=== PATIENT | female | born 1935 | race Caucasian/White ===

== ENCOUNTER 2016-06-13 10:17 | Emergency (ER) | payer MEDICARE, OTHER ==
[~2016-06-13] VITALS: Ht 160 cm; Wt 56.8 kg
[2016-06-13] MEDS ORDERED: PIPER-TAZO 3.375 GM IV (PMX) 100 ML IVPB STA (10:20)
[2016-06-13] MEDS ORDERED: SOD CHLORIDE 0.9% 1,000 ML IV STA ×2 (10:20)
[2016-06-13 10:21] VITALS: Ht 160 cm; Wt 56.8 kg
[2016-06-13] MEDS ORDERED: ONDANSETRON 4 MG INJ IV STA (10:23)
[2016-06-13] MEDS ORDERED: morphine 4 MG/ML VIAL IV STA (10:23)
[2016-06-13] MEDS ORDERED: ACET325S GTB (10:32)
[2016-06-13] MEDS ORDERED: APIX2.5T GTB (10:33)
[2016-06-13] MEDS ORDERED: DULR PR (10:34)
[2016-06-13] MEDS ORDERED: BEN25 GTB (10:34)
[2016-06-13] MEDS ORDERED: LANS30CA GTB (10:36)
[2016-06-13] MEDS ORDERED: MIRT15TA GTB (10:37)
[2016-06-13] MEDS ORDERED: SILD20TA GTB (10:38)
[2016-06-13] MEDS ORDERED: MUPI1OIN5 NASAL (10:51)
[2016-06-13] MEDS ORDERED: EPOE3000 SC (10:51)
[2016-06-13] MEDS ORDERED: VANCOMYCIN 1 GM (PMX) 250 ML IVPB SCH (11:00)
[2016-06-13] MEDS ORDERED: AZTREONAM 1 GM/NS (PMX) 50 ML IVPB ONE (11:00)
[2016-06-13 11:02] LABS: AADO2 Arterial 99.2 mmHg (7.0-24.0); Allen Test ACCEPTAB; Arterial Base Excess -0.9 mmol/L (-3.0-3); Arterial COHb 0.3 % (0.0-3.0); Arterial Fraction of Oxyhgb 97.6 % (93.0-99.0); Arterial HCO3 26.2 mmol/L (22.0-26.0); Arterial MetHb 0.2 % (0.0-1.5); MODE VENT - AC
[2016-06-13 11:27] LABS: ALBUMIN 3.3 g/dl (3.3-4.9)
[2016-06-13 11:28] LABS: CHLORIDE 101 mmol/L (97-110); POTASSIUM 3.9 mmol/L (3.5-5.1); SODIUM 140 mmol/L (135-144)
[2016-06-13 11:29] LABS: INR 1.42; PROTIME 17.4 Sec (12.2-14.2); PT RATIO 1.4
[2016-06-13 11:30] LABS: ALBUMIN/GLOBULIN RATIO 0.84; ALKALINE PHOSPHATASE 190 IU/L (42-121); ANION GAP 15 (8-16); ASPARTATE AMINO TRANSFERASE 19 IU/L (15-46); CARBON DIOXIDE 28 mmol/L (21-31); CREATININE 1.53 mg/dl (0.44-1.00); PARTIAL THROMBOPLASTIN TIME 39.2 Sec (25.0-35.0); TOTAL PROTEIN 7.2 g/dl (6.1-8.1)
[2016-06-13 11:31] LABS: ALANINE AMINOTRANSFERASE 16 IU/L (13-69); BLOOD UREA NITROGEN 25 mg/dl (7-20); CALCIUM 9.5 mg/dl (8.4-10.2); GLUCOSE 107 mg/dl (70-220)
[2016-06-13 11:34] LABS: BASOPHIL # 0.1 10^3/ul (0.0-0.1); BASOPHILS % 0.6 % (0.0-2.0); EOSINOPHILS # 0.2 10^3/ul (0.0-0.5); EOSINOPHILS % 2.1 % (0.0-7.0); HEMATOCRIT 25.1 % (37.0-47.0); HEMOGLOBIN 8.1 g/dl (12.0-16.0); LYMPHOCYTES # 1.9 10^3/ul (0.8-2.9); LYMPHOCYTES % 18.9 % (15.0-51.0); MEAN CORPUSCULAR HEMOGLOBIN 32.3 pg (29.0-33.0); MEAN CORPUSCULAR HGB CONC 32.4 g/dl (32.0-37.0); MEAN CORPUSCULAR VOLUME 99.9 fl (82.0-101.0); MEAN PLATELET VOLUME 7.3 fl (7.4-10.4); MONOCYTES % 9.8 % (0.0-11.0); NEUTROPHIL # 7.1 10^3/ul (1.6-7.5); NEUTROPHILS % 68.6 % (39.0-77.0); PLATELET COUNT 286 10^3/UL (140-440); RED BLOOD COUNT 2.51 10^6/ul (4.20-5.40); RED CELL DISTRIBUTION WIDTH 18.4 % (11.5-14.5); UNCORRECTED WBC 10.3 10^3/ul (4.8-10.8); WHITE BLOOD COUNT 10.3 10^3/ul (4.8-10.8)
--- NOTE | 2016-06-13 11:34 | RADRPT ---
PROCEDURE: CT Abdomen and Pelvis without contrast. CLINICAL INDICATION: Sepsis. TECHNIQUE: Multiple contiguous axial CT images of the abdomen and pelvis were obtained without the administration of intravenous contrast. Coronal and sagittal reconstructions were also performed. CTDIvol (mGy): 18.37; Total Exam DLP (mGy-cm): 1106.67. One or more of the following dose reduction techniques were utilized: - Automated exposure control. - Adjustment of the mA and/or kV according to patient size. - Use of iterative reconstruction technique. COMPARISON: None. FINDINGS: Limited imaging of the lower thorax demonstrates marked cardiomegaly with substantial enlargement of the bilateral atria. Small moderate right and small left pleural effusions are present. Atelectas is is also seen within the lung bases. A hemodialysis catheter terminates at the SVC/right atrial j unction. Fine parenchymal detail is limited due to artifact from patient's positioning over the upper abdomen . Despite this limitation, the liver, spleen, pancreas and adrenal glands are unremarkable aside fr om the presence of a mild nodular contour of the liver. The gallbladder is surgically absent. The kidneys are symmetric in size. There are no nephroureteral stones. There is no hydronephrosis o r abnormal perinephric inflammation. The abdominal aorta is normal in caliber. Atherosclerotic calcification is present. There is no per iaortic / retroperitoneal lymphadenopathy. A percutaneous gastrostomy tube is in place within the distal portion of the stomach. The small int estines are unremarkable. Sigmoid diverticulosis is present. The appendix is not visualized. Larg e volume ascites is present along with mesenteric edema. Pelvic floor laxity is present and evidenced by descent of the anorectal junction and presence of a large peritoneocele. The bladder is collapsed. Extensive arcuate vessel calcification of the uteru s is observed. The adnexa are unremarkable. There is no free pelvic fluid. There is no pelvic side wall or inguinal lymphadenopathy. Bony mineralization is decreased. Mild superior endplate depression of L2 and L4 is observed with l ess than 25% loss in vertebral body height. Mild degenerative changes of the spine are present. Dif fuse subcutaneous edema is present. IMPRESSION: Marked cardiomegaly with bilateral pleural effusions and basilar atelectasis. Large volume ascites and mesenteric and subcutaneous edema. Sigmoid diverticulosis. Pelvic floor laxity as evidenced by descent of the anorectal junction and presence of a large perit oneocele. Bony demineralization with mild compression fractures of L2 and L4. RPTAT: HLST .Gail Long MD, Date Time Electronically viewed and signed by .Gail Long MD, on 06/13/2016 11:34 .T/
[2016-06-13 11:37] LABS: CONDITION 1; LH ANALYZER COMMENTS 1
--- NOTE | 2016-06-13 11:43 | RADRPT ---
PROCEDURE: XR Chest. CLINICAL INDICATION: Sepsis. Shortness of breath. TECHNIQUE: Single frontal view. COMPARISON: None. FINDINGS: The tracheostomy tube and tunneled right internal jugular vein catheter are in satisfactory position . There is extensive air space and interstitial disease bilaterally with mid and lower lung zone pr edominance consistent with pulmonary edema or bilateral pneumonia. The heart is enlarged. There are moderate bilateral pleural effusions. There is no pneumothorax. IMPRESSION: 1. Tracheostomy tube and tunneled right IJ catheter in satisfactory position. 2. Pulmonary edema or bilateral pneumonia. 3. Cardiomegaly. 4. Moderate bilateral pleural effusions. RPTAT: QQ .Flash Arce MD, MD Date Time Electronically viewed and signed by .Flash Arce MD, MD on 06/13/2016 11:42 .R/
[2016-06-13 11:46] LABS: TROPONIN-I < 0.010 ng/ml (0.00-0.12)
[2016-06-13 11:54] LABS: ADD UMIC YES; URINE BILIRUBIN (Dip) 2+ (NEGATIVE); URINE BLOOD (Dip) 3+ (NEGATIVE); URINE COLOR AMBER (YELLOW); URINE GLUCOSE (Dip) NEGATIVE (NEGATIVE); URINE KETONES (Dip) TRACE (NEGATIVE); URINE LEUKOCYTE ESTERASE (Dip) 2+ (NEGATIVE); URINE NITRITE (Dip) POSITIVE (NEGATIVE); URINE TOTAL PROTEIN (Dip) 2+ (NEGATIVE); URINE UROBILINOGEN (Dip) 1.0 E.U./dL (0.1-1.0)
[2016-06-13 12:11] LABS: ICTOTEST NEGATIVE (NEGATIVE)
[2016-06-13 12:12] LABS: BACTERIA,URINE MODERATE
[2016-06-13] MEDS ORDERED: LIDOCAINE 1% (MPF) 5 ML VIAL ONE (14:06)
--- NOTE | 2016-06-13 15:01 | ERD ---
ER Documentation Chief Complaint Date/Time DATE: 06/13/16 TIME: 14:58 Chief Complaint abd distention HPI Patient is an 80-year-old female with dialysis and tracheostomy on a ventilator presents for abdominal distention. The patient was sent from [facility]. She is a DNR. Please note the history and physical exam is limited secondary to the patient's mental status at baseline. Her primary doctor is Dr. Kaveh Escobedo. ROS All systems reviewed and are negative except as per history of present illness. Medications Home Meds Reported Medications Mupirocin Calcium* (Bactroban* Nasal) 2% -1 Gram Oint...g., 1 APPLIC NASAL BID, TUB 06/13/16 Epoetin maria esther* (Epogen*) 3,000 Unit/1 Ml Vial, 15617 UNIT SC Sat, VIAL PT RECEIVES ON HEMODIALYIS DAYS AND SAT 06/13/16 Sildenafil Citrate* (Sildenafil Citrate*) 20 Mg Tablet, 20 MG GTB TID, TAB 06/13/16 Mirtazapine* (Remeron*) 15 Mg Tablet, 7.5 MG GTB HS Y for INSOMNIA, TAB 06/13/16 Lansoprazole* (Lansoprazole*) 30 Mg Capsule.dr, 30 MG GTB DAILY Y for GASTROINTESTINAL UPSET, CAP 06/13/16 Diphenhydramine Hcl* (Benadryl*) 25 Mg Cap, 25 MG GTB Q8 Y for ITCHING, CAP 06/13/16 Bisacodyl* (Bisacodyl*) 10 Mg Supp, 10 MG NH DAILY Y for CONSTIPATION, SUPP 06/13/16 Apixaban* (Eliquis*) 2.5 Mg Tablet, 2.5 MG GTB BID, TAB 06/13/16 Acetaminophen* (Acetaminophen* Susp) 325 Mg/10.15 Ml Solution, 650 MG GTB Q4H Y for PAIN AND OR ELEVATED TEMP, ML 06/13/16 Allergies Allergies: Coded Allergies: Penicillins (Verified Allergy, Unknown, 06/13/16) Sulfa (Sulfonamide Antibiotics) (Verified Allergy, Unknown, 06/13/16) aspirin (Verified Allergy, Unknown, 06/13/16) PMhx/Soc History of Surgery: Yes (dialysis cath ru chest) Hx Miscellaneous Medical Probl: Yes (dialysis t,th.sat) Hx Alcohol Use: No Hx Substance Use: No Hx Tobacco Use: No Smoking Status: Never smoker FmHx Unable to obtain Physical Exam Vitals Vital Signs Date Time Temp Pulse Resp B/P Pulse Ox O2 Delivery O2 Flow Rate FiO2 06/13/16 10:30 116 20 100 40 06/13/16 10:21 99.0 82 12 130/90 100 Physical Exam Const: Chronically ill Head: Atraumatic Eyes: Normal Conjunctiva ENT: Normal External Ears, Nose and Mouth. Neck: Full range of motion..~ No meningismus. Resp: Clear to auscultation bilaterally Cardio: Regular rate and rhythm, no murmurs Abd: Diffuse abdominal distention Skin: No petechiae or rashes Back: No midline or flank tenderness Ext: No cyanosis, or edema Neur: Awake and alert Psych: Normal Mood and Affect Result Diagram: 06/13/16 1100 06/13/16 1100 Results 24 hrs Laboratory Tests Test 06/13/16 10:23 06/13/16 11:00 06/13/16 11:40 Arterial Blood HCO3 26.2mmol/L Arterial Blood Base Excess -0.9mmol/L Arterial Blood Oxygen Saturation 98.1mmHG Jake Test ACCEPTAB Arterial Blood Gas Puncture Site Right Radial Arterial Blood Carboxyhemoglobin 0.3% Arterial Blood Date Drawn 06/13/2016 10:50:16 AM Arterial Blood Methemoglobin 0.2% Arterial Blood pCO2 (Temp correct) 57.2mmhg Arterial Blood pH (Temp corrected) 7.279 Arterial Blood pO2 (Temp corrected) 120.2mmHG Blood Gas A-a O2 Differential 99.2mmHg Blood Gas Actual Respiration Rate 19 Blood Gas Critical Value Read Back DR JOY Saucedo Blood Gas Low PEEP Setting 5.0cmH2O Blood Gas Modality VENT - AC Blood Gas Notified Time 06/13/2016 11:02:08 AM Blood Gas Notified Whom JLD Blood Gas Respiration Rate 12.0 Blood Gas Specimen Source Blood arterial Blood Gas Temperature 37.0C Blood Gas Tidal Volume 400.0mL FiO2 40.0% Oxyhemoglobin Percent 97.6% Total Hemoglobin 9.0g/dl Activated Partial Thromboplast Time 39.2Sec Alanine Aminotransferase (ALT/SGPT) 16IU/L Albumin 3.3g/dl Albumin/Globulin Ratio 0.84 Alkaline Phosphatase 190IU/L Anion Gap 15 Aspartate Amino Transf (AST/SGOT) 19IU/L Basophils # 0.110^3/ul Basophils % 0.6% Blood Morphology Comment Blood Urea Nitrogen 25mg/dl Calcium Level 9.5mg/dl Carbon Dioxide Level 28mmol/L Chloride Level 101mmol/L Creatinine 1.53mg/dl Direct Bilirubin 0.00mg/dl Eosinophils # 0.210^3/ul Eosinophils % 2.1% Globulin 3.90g/dl Glucose Level 107mg/dl Hematocrit 25.1% Hemoglobin 8.1g/dl INR International Normalized Ratio 1.42 Indirect Bilirubin 0.0mg/dl Lactic Acid Level 0.6mmol/L Lymphocytes # 1.910^3/ul Lymphocytes % 18.9% Mean Corpuscular Hemoglobin 32.3pg Mean Corpuscular Hemoglobin Concent 32.4g/dl Mean Corpuscular Volume 99.9fl Mean Platelet Volume 7.3fl Monocytes # 1.010^3/ul Monocytes % 9.8% Neutrophils # 7.110^3/ul Neutrophils % 68.6% Nucleated Red Blood Cells # 0.010^3/ul Nucleated Red Blood Cells % 0.0/100WBC Platelet Count 44136^3/UL Potassium Level 3.9mmol/L Prothrombin Time 17.4Sec Prothrombin Time Ratio 1.4 Red Blood Count 2.5110^6/ul Red Cell Distribution Width 18.4% Sodium Level 140mmol/L Total Bilirubin 0.0mg/dl Total Protein 7.2g/dl Troponin I < 0.010ng/ml White Blood Count 10.310^3/ul Urine Bacteria MODERATE Urine Bilirubin 2+ Urine Clarity SLIGHTLY CLOUDY Urine Color SAKINA Urine Epithelial Cells FEW Urine Glucose NEGATIVE% Urine Hemoglobin 3+ Urine Ictotest NEGATIVE Urine Ketones TRACE Urine Leukocyte Esterase 2+ Urine Microscopic RBC 10-25/HPF Urine Microscopic WBC 5-10/HPF Urine Nitrite POSITIVE Urine Specific [place] >=1.030 Urine Total Protein 2+ Urine Urobilinogen 1.0 E.U./dL Urine Yeast MODERATE Urine pH 6.5 Current Medications Medications (Trade) Dose Ordered Sig/Evelyne Route PRN Reason Start Time Stop Time Status Last Admin Dose Admin Piperacillin Sod/ Tazobactam Sod 100 ml @ 200 mls/hr ONCE STAT IVPB 06/13/16 10:20 06/13/16 10:36 DC Sodium Chloride 1,000 ml @ 1,000 mls/hr Q1H STAT IV 06/13/16 10:20 06/13/16 11:19 DC Sodium Chloride (NS) 1,000 ml @ 1,000 mls/hr Q1H STAT IV 06/13/16 10:20 06/13/16 11:19 DC Morphine Sulfate (morphine) 4 mg ONCE STAT IV 06/13/16 10:23 06/13/16 10:24 DC Ondansetron HCl 4 mg 4 mg ONCE STAT IV 06/13/16 10:23 06/13/16 10:24 DC Vancomycin HCl 250 ml @ 125 mls/hr ONCE IVPB 06/13/16 11:00 06/13/16 11:54 DC Aztreonam (Azactam 1gm/NS (Pmx)) 50 ml @ 100 mls/hr ONCE ONCE IVPB 06/13/16 11:00 06/13/16 11:54 DC Lidocaine (Xylocaine 1% (Mpf)) 5 ml STK-MED ONCE .ROUTE 06/13/16 14:06 06/13/16 14:07 DC Procedures/MDM CT scan shows abdominal ascites per radiology. PROCEDURE: XR Chest. CLINICAL INDICATION: Sepsis. Shortness of breath. TECHNIQUE: Single frontal view. COMPARISON: None. FINDINGS: The tracheostomy tube and tunneled right internal jugular vein catheter are in satisfactory position. There is extensive air space and interstitial disease bilaterally with mid and lower lung zone predominance consistent with pulmonary edema or bilateral pneumonia. The heart is enlarged. There are moderate bilateral pleural effusions. There is no pneumothorax. IMPRESSION: 1. Tracheostomy tube and tunneled right IJ catheter in satisfactory position. 2. Pulmonary edema or bilateral pneumonia. 3. Cardiomegaly. 4. Moderate bilateral pleural effusions. RPTAT: QQ .Flash Arce MD, MD Date Time Electronically viewed and signed by .Flash Arce MD, MD on 06/13/2016 11:42 Ultrasound-guided paracentesis done by radiology. Patient is an 80-year-old female who presents with abdominal ascites. I spoke with Dr. Devi who is covering for her primary doctor. The patient does not require admission to the hospital at this time. White blood cell count is normal. There is anemia but does not require transfusion. There is a possible pneumonia as well as cystitis and I will treat with Cipro for a one-week course. The patient will be discharged back to the subacute facility. Paracentesis was performed and I doubt spontaneous bacterial peritonitis. Given the patient's age and comorbidities she does have a poor prognosis and I did discuss this with Dr. Devi her doctor. Departure Diagnosis: Primary Impression: UTI (urinary tract infection) Urinary tract infection type: acute cystitis Hematuria presence: without hematuria Qualified Code: N30.00 - Acute cystitis without hematuria Additional Impressions: Swelling Ascites Ascites type: other type Qualified Code: R18.8 - Other ascites Condition: Fair Patient Instructions: Understanding Urinary Tract Infections (UTIs), Ascites Referrals: KAVEH ESCOBEDO DO Additional Instructions: Call your primary care doctor TOMORROW for an appointment during the next 1-2 days.See the doctor sooner or return here if your condition worsens before your appointment time. ISABELLA HAMILTON MD Jun 13, 2016 15:00
--- NOTE | 2016-06-13 15:27 | RADRPT ---
PROCEDURE: Ultrasound guided paracentesis. CLINICAL INDICATION: Ascites and shortness of breath. COMPARISON: No prior studies are available for comparison. TECHNIQUE: The risks, benefits, and alternatives were explained to the patient, including but not limited to bl eeding, infection, pain, visceral or vascular damage, shock, and . The patient understood the risks and the alternatives and wished to proceed with the procedure. Informed written consent was o btained. A procedural time out was performed. The patient's name, date of , and procedure to b e performed were verified. Utilizing ultrasound guidance, optimal location for entry to the peritoneal cavity was ascertained. The overlying skin was prepped and draped in the usual sterile fashion. Approximately 10 ml of 1% Xylocaine was injected locally for pain control. Using ultrasound guidance, an 8 Romanian catheter wa s introduced into the peritoneal cavity in the right lower quadrant without difficulty. FINDINGS: Initial images demonstrate ascites. Approximately 5.125 liters of serous fluid was aspirated and di scarded. The patient tolerated the procedure well without complication. IMPRESSION: 1. Successful ultrasound-guided paracentesis. RPTAT: QQ .Flash Arce MD, Date Time Electronically viewed and signed by .Flash Arce MD, MD on 06/13/2016 15:27 .R/
[2016-06-13 15:33] VITALS: BP 113/55; PULSE 88
[2016-06-13] MEDS ORDERED: CIPR500T4 PO (15:50)
[2016-06-13] MEDS ORDERED: DIPHENHYDRAMINE 50 MG INJ IV ONE (16:30)
[2016-06-13 17:05] VITALS: RESP 20
== END 2016-06-13 17:47 | disposition home or self-care (01) ==
LOC: E/R 10:17
DX: N30.00 Acute cystitis without hematuria (principal); R18.8 Other ascites; R22.9 Localized swelling, mass and lump, unspecified; R06.02 Shortness of breath; Z79.01 Long term (current) use of anticoagulants
CPT/HCPCS: 36415; 36600; 71010; 74176; 80053; 81001; 82803; 83605; 84484; 85025; 85610; 85730; 87040; 87086; 93005; 94002; 96374; 99285; J1200; J3370; J7030; 81003